=== PATIENT | male | born 1940 | race Caucasian/White ===

== ENCOUNTER → 2016-11-09 | Outpatient (CLI) | payer MEDICARE ==
[2016-11-09 12:58] LABS: CH 28.8; CHCM 33.4; HCT 39.9 % (39.0-53.0); HDW 2.68; HGB 13.5 gm/dL (13.0-17.5); MCH 29.3 pg (25.0-35.0); MCHC 33.8 g/dL (31.0-37.0); MCV 86.6 fL (80.0-100.0); Mean Platelet Volume 7.1; RBC 4.61 m/uL (4.30-5.90); RDW 13.9 % (11.5-15.5)
[2016-11-09 13:12] LABS: ALT 32 U/L (21-72); AST 20 U/L (17-59); Alkaline Phosphatase 156 U/L (38-126); Anion Gap 11 mmol/L; Blood Urea Nitrogen 13 mg/dL (9-20); Calcium 9.9 mg/dL (8.4-10.2); Carbon Dioxide 25 mmol/L (22-30); Chloride 105 mmol/L (98-107); Glucose 97 mg/dL (74-99); Non-African American GFR(MDRD) >60 (>60 ml/min/1.73 sqM); Potassium 4.2 mmol/L (3.5-5.1); Sodium 141 mmol/L (137-145); Total Bilirubin 0.5 mg/dL (0.2-1.3); Total Protein 7.9 g/dL (6.3-8.2)
[2016-11-09 13:25] LABS: Appearance,Urine Clear (Clear); Bilirubin,Urine Negative (Negative); Glucose,Urine (UA) Negative (Negative); Ketones,Urine Negative (Negative); Leukocyte Esterase,Urine Negative (Negative); Nitrite,Urine Negative (Negative); PH, Urine 5.5 (5.0-8.0); Protein,Urine Negative (Negative); Specific Gravity,Urine 1.004 (1.001-1.035); UA Billing (MACRO vs. MICRO) CHEM; Urobilinogen,Urine <2.0 mg/dL (<2.0)
[2016-11-09 13:28] LABS: Partial Thromboplastin Time 23.3 sec (22.0-30.0); Prothrombin Time 10.4 sec (9.0-12.0)
== END | disposition home or self-care (01) ==
LOC: LABPAT 12:32
PROVIDERS: ATTEND Orthopaedic Surgery
DX: Z01.810 Encounter for preprocedural cardiovascular examination (principal); Z79.01 Long term (current) use of anticoagulants; Z01.812 Encounter for preprocedural laboratory examination
CPT/HCPCS: 36415; 80053; 81003; 85027; 85610; 85730; 87070

== ENCOUNTER → 2016-11-19 | Outpatient (CLI) | payer MEDICARE ==
--- NOTE | 2016-11-19 14:21 | US ---
EXAMINATION TYPE: US bladder DATE OF EXAM: 11/19/2016 COMPARISON: NONE CLINICAL HISTORY: R33.9 Urinary retention,N13.9Obstructive uropathy both per order. Urge to urinate a fter voiding for over 1 year EXAM MEASUREMENTS: Post Void Residual Volume: 16.3 mL Color Doppler performed to assess ureteral jets. Bilateral Jets seen: yes Normal Post Void Residual (less than 50ml): yes Urinary bladder is satisfactorily distended without abnormal intraluminal mass or wall thickening. Bi lateral distal ureter jets are seen. After voiding small amount of residual urine is present. IMPRESSION: Exam is within normal limits.
== END | disposition home or self-care (01) ==
LOC: RADUSWWP 13:46
PROVIDERS: ATTEND Family Medicine
DX: R33.9 Retention of urine, unspecified (principal)
CPT/HCPCS: 76857

== ENCOUNTER 2016-12-04 05:24 | Inpatient (IN) | payer MEDICARE, BC ==
[2016-11-28 12:59] VITALS: BMI 26.2
[~2016-12-04 05:24] MED LIST: ACETAMINOPHEN TAB 500 MG TAB PO ONE; DEXAMETHASONE SOD PHOSPHATE 10 MG/ML 1 ML VIAL IV ONE; HYDROmorphone 1 MG/ML 1 ML SYRINGE IVP PRN; MELOXICAM 7.5 MG TAB PO ONE; MIDAZOLAM 2 MG/2 ML VIAL IV PRN; TRANEXAMIC ACID 1,000 MG in SODIUM CHLORIDE 0.9% 100 ML IVPB ONE; ceFAZolin 2 GM in SODIUM CHLORIDE 0.9% 100 ML IVPB ONE
[2016-12-04] MEDS ORDERED: LIDOCAINE 1% 20 ML VIAL (10MG/ML) FOR IV START INTRADERMA ONE (06:20)
[2016-12-04] MEDS: LACTATED RINGERS 1,000 ML IV SCH (06:20)
[2016-12-04] MEDS: ONDANSETRON 4 MG/2 ML VIAL IVP ONE ×2 (06:21→16:58)
[2016-12-04] MEDS ORDERED: MIDAZOLAM 2 MG/2 ML VIAL IV ONE (06:50)
[2016-12-04] MEDS ORDERED: HYDROcodone/APAP 5-325MG 1 EACH TAB PO PRN ×2 (06:56)
[2016-12-04] MEDS ORDERED: NALOXONE 0.4 MG/ML 1 ML VIAL IV PRN (06:56)
[2016-12-04] MEDS ORDERED: NA PHOS,M-B/NA PHOS,DI-BA 133 ML ENEMA RECTAL PRN (06:56)
[2016-12-04] MEDS ORDERED: HYDROmorphone 1 MG/ML 1 ML SYRINGE IVP PRN ×3 (06:56)
[2016-12-04] MEDS ORDERED: DIAZEPAM 5 MG TAB PO PRN ×2 (06:56)
[2016-12-04] MEDS ORDERED: BISACODYL 10 MG SUPP RECTAL PRN (06:56)
[2016-12-04] MEDS ORDERED: hydrOXYzine PAMOATE 25 MG CAP PO PRN (06:56)
[2016-12-04] MEDS ORDERED: MAGNESIUM HYDROXIDE 2,400 MG/10 ML CUP PO PRN (06:56)
[2016-12-04] MEDS ORDERED: ONDANSETRON 4 MG/2 ML VIAL IVP PRN (06:56)
[2016-12-04] MEDS ORDERED: PROPOFOL 10 MG/ML 20 ML VIAL IV ONE (07:06)
[2016-12-04] MEDS ORDERED: ceFAZolin 3,000 MG in SODIUM CHLORIDE 0.9% IRRIGATIO 3,000 ML IRRIGATION ONE (07:06)
[2016-12-04] MEDS ORDERED: MIDAZOLAM 2 MG/2 ML VIAL ONE (07:06)
[2016-12-04] MEDS ORDERED: fentaNYL (PF) 50 MCG/ML 2 ML AMP ONE (07:06)
[2016-12-04] MEDS ORDERED: PHENYLEPHRINE-0.9% NACL SYG 1 MG/10 ML SYRINGE ONE (07:06)
[2016-12-04] MEDS: ROPIVACAINE 246.25 MG, EPINEPHrine 0.5 MG, KETOROLAC 30 MG, cloNIDine HCL/PF 80 MCG, WA... MISCELLANE ONE ×10 (07:20→08:34)
[2016-12-04] MEDS ORDERED: LACTATED RINGERS 1,000 ML IV ONE (08:47)
--- NOTE | 2016-12-04 08:47 | P.OP ---
Date of Procedure: 12/04/16 Preoperative Diagnosis: Severe osteoarthritis left knee Postoperative Diagnosis: Severe osteoarthritis left knee Procedure(s) Performed: Left total knee arthroplasty Implants: Gaspar and Nephew Oxinium femoral component size 4, left Gaspar & Nephew Darling II left nonporous tibial baseplate size 5 Gaspar & Nephew size 13 mm Legion XLPE dished articular insert, size 5-6 Gaspar & Nephew Darling II resurfacing patellar component, 32 mm All components were cemented using Bernardo Palacos bone cement.. The articulation is ceramic on polyethylene. Anesthesia: spinal Surgeon: Km Blue Quality Lab Technician #1: Heidy Phillips Estimated Blood Loss (ml): 50 Pathology: other (Bone and cartilage) Condition: stable Disposition: PACU Indications for Procedure: After failure of conservative treatment we discussed the surgical and nonsurgical treatment options at length. Patient wishes to proceed with a total knee arthroplasty. Complications specific to this procedure were discussed at length, including but not limited to infection, bleeding, stiffness , and nerve injury. Patient is aware of all these complications and informed consent was obtained Operative Findings: The operative findings are consistent with severe osteoarthritis of the left knee Description of Procedure: Patient was seen in the preoperative area consent was reviewed and operative site was marked with a skin marker. An adductor canal pain catheter was placed by anesthesia in the preoperative area. Patient was then brought to the operating room and given preoperative antibiotics intravenously. A spinal anesthetic was administered by the anesthesia department. A tourniquet was placed on the upper thigh and the lower extremity was prepped and draped in usual sterile fashion. A gram of transexamic acid was given. A universal timeout was then performed which confirmed the patient's name, surgical site, ALLERGIES, and consent. The lower extremity was then exsanguinated and tourniquet was inflated to 250 mmHg. A standard and anterior midline approach to the knee was performed. The skin and subcutaneous tissue was dissected down to the patellar tendon. A medial parapatellar arthrotomy was then performed. The knee was then extended, the patellar was everted, and the knee was again flexed. Anterior horns of both menisci were excised, and a release was performed to the posterior medial aspect of the knee. On gross visual inspection, there was complete loss of articular cartilage in the medial and patellofemoral joint spaces. There was also significant cartilage damage in the lateral compartment. There were multiple periarticular osteophytes which were then removed with a Ronguer. The femoral canal was then opened with the appropriate drill, and the intramedullary femoral cutting guide was then placed and set for 4 of valgus. The distal femoral cutting block was then pinned in place, and the distal femur was then cut. The cutting block was then removed and the cut was checked for flatness. Next, the sizing guide was then placed and set for 3 external rotation based off of the epicondylar axis and Whitesides line. After the femur was sized, the appropriate 4-in-1 cutting block was then pinned in place. The anterior condyles were cut without notching. The posterior and chamfer cuts were performed while protecting the collateral ligaments. The cutting block was then removed, and the femoral canal was plugged with autologous bone. Attention was then directed to the tibia. The remaining ACL was removed with a Ronguer, and the tibia was then gently subluxed forward with a large bent knee retractor. Any remaining menisci was excised. The posterior lateral corner was cauterized in order to cauterize the lateral geniculate artery. The extra medullary tibial cutting guide was then placed, set for the appropriate rotation , slope, and depth of resection. The proximal tibia cutting guide was then pinned in place. Proximal tibia was then cut and sized. Next trials were then placed with the appropriate-sized insert. The knee was able to fully extend and flex to 130 and was stable throughout all range of motion. The knee was then extended, patella everted. Patella was then measured, and then using an osteotomy guide, the patella was cut at the appropriate level. The patella was then measured and drilled and the patella trial was then placed. The knee was then taken through range of motion with the patella trial and the patella tracked normally. The knee was then extended patella trial was then removed and the patella was everted. Knee was then flexed and lug holes were drilled through the femoral trial and the femoral trial was then removed. The tibial was then exposed, and the tibial broach guide was then pinned in place after it was set for the appropriate rotation to allow for the most coverage without overhang. The tibia was then reamed and broached. The cut surfaces of bone were then irrigated with pulsatile lavage. The posterior structures were injected with the ropivacaine solution. The knee was also irrigated with Irrisept solution. The components were then opened, the cement was mixed, and the components were then cemented in place. The cement was allowed to harden with the knee in full extension. While the cement was hardening, the remaining soft tissues were then injected with a ropivacaine solution, which consisted of 246.25 mg of ropivacaine, 0.5 mg of epinephrine, 30 mg of Toradol, 80 g of clonidine, and 48.45 mL of sterile water, for a total of 100 mL of fluid injected. After the cemented hardened. The tourniquet was released, and hemostasis was obtained. A second gram of transexamic acid was given. The knee was again irrigated. The knee was again taken through range of motion and found to be stable throughout all range of motion of 0-130 , and the patella tracked normally. The fascia was then closed with #2 strata fix suture. The subcutaneous tissue was closed with 3-0 Vicryl and 3-0 strata fix. Dermabond tape was used for the skin and placed with the knee in flexion. The patient was placed in a sterile dressing. Patient was then transferred to recovery room in stable condition. The land surveyor assistant CHANDLER Bell was required due the complexity surgery and the need for a skilled neurosurgical nurse. She assisted in positioning, draping, retraction, and closure of the wound.
[2016-12-04] MEDS ORDERED: ROPIVACAINE 1,100 MG, SODIUM CHLORIDE 0.9% 330 ML MISCELLANE PRN ×2 (09:20)
--- NOTE | 2016-12-04 09:32 | XR ---
EXAMINATION TYPE: XR knee limited LT DATE OF EXAM: 12/04/2016 CLINICAL HISTORY: Postoperative evaluation Two views of the left knee are submitted. Identified are changes of total knee arthroplasty with fem oral and tibial components appearing well seated. Postsurgical soft tissue changes are noted. Align ment is anatomic.
--- NOTE | 2016-12-04 10:20 | P.ONQ ---
Anesthesiology Proc Note - PNB - Peripheral Nerve Block Performed Left Adductor Canal Infusion Time Out Performed: Yes Procedure Start Time: 06:50 Procedure Stop Time: 06:59 Indication: Acute Post-Operative Pain, Requested by physician Sedation Type: Sedate with meaningful contact maintained Preparation: Sterile Dressing Position: Supine Catheter: Indwelling Needle Types: On-Q Needle Size: 150mm (6") Needle Gauge: 21 Technique: Ultrasound Injectate: 0.5% Ropivacaine (see comment for volume) (20cc) Blood Aspirated: No Pain Paresthesia on Injection Noted: No Resistance on Injection: Normal Events: Uneventful and Well Tolerated
[2016-12-04] MEDS: MELOXICAM 7.5 MG TAB PO SCH (17:35)
[2016-12-04] MEDS: ASPIRIN 325 MG TAB PO SCH ×2 (17:35→21:01)
[2016-12-04] MEDS ORDERED: ACETAMINOPHEN TAB 500 MG TAB PO PRN (20:34)
[2016-12-04] MEDS: SODIUM CHLORIDE 0.9% 1,000 ML IV SCH (20:56)
[2016-12-04] MEDS: ceFAZolin 2 GM in SODIUM CHLORIDE 0.9% 100 ML IVPB SCH ×2 (20:56→21:01)
[2016-12-04] MEDS ORDERED: FLUTICASONE 50MCG/SPRAY NASAL 16GM EA NOSTRIL SCH (21:00)
[2016-12-04] MEDS ORDERED: SENNOSIDES-DOCUSATE SODIUM 1 EACH TAB PO SCH (21:00)
[2016-12-04 21:05] VITALS: RESP 16
[2016-12-05 01:34] VITALS: BP 128/72; PULSE 74; TEMP 97.9
[2016-12-05] MEDS: SODIUM CHLORIDE 0.9% 1,000 ML IV SCH ×2 (04:16→07:28)
[2016-12-05] MEDS: MELOXICAM 7.5 MG TAB PO SCH (07:27)
[2016-12-05] MEDS: ASPIRIN 325 MG TAB PO SCH (07:29)
[2016-12-05] MEDS ORDERED: PANTOPRAZOLE 40 MG TABLET PO SCH (07:30)
[2016-12-05 07:48] LABS: Basophils % (A) 0 %; CH 27.9; CHCM 32.8; Eosinophils # (A) 0.1 k/uL (0-0.7); Eosinophils % (A) 0 %; HCT 34.1 % (39.0-53.0); HDW 2.67; HGB 11.1 gm/dL (13.0-17.5); Luc # (Auto) 0.17; Luc % (Auto) 1; Lymphocytes # (A) 1.6 k/uL (1.0-4.8); Lymphocytes % (A) 14 %; MCH 27.9 pg (25.0-35.0); MCHC 32.7 g/dL (31.0-37.0); MCV 85.3 fL (80.0-100.0); Mean Platelet Volume 7.2; Monocytes # (A) 0.9 k/uL (0-1.0); Monocytes % (A) 8 %; Neutrophils % (A) 77 %; RDW 13.6 % (11.5-15.5); WBC 11.7 k/uL (3.8-10.6); WBC (Perox) 12.31
[2016-12-05] MEDS ORDERED: amLODIPine 10 MG TAB PO SCH (09:00)
[2016-12-05] MEDS ORDERED: DOXAZOSIN 2 MG TAB PO SCH (09:00)
--- NOTE | 2016-12-05 09:37 | P.DS ---
Providers Date of admission: 12/04/16 05:47 Expected date of discharge: 12/05/16 Attending physician: Km Blue Consults: 12/04/16 06:56 Consult Physician Routine Consulting Provider: Aline Sood Consult Reason/Comments: medical management Do you want consulting provider notified?: Yes 12/04/16 16:07 Consult Physician Routine Consulting Provider: Monica Oneal Consult Reason/Comments: medical management Do you want consulting provider notified?: Already Contacted Primary care physician: Aline Sood - Discharge Diagnosis(es) (1) Primary osteoarthritis of left knee Current Visit: Yes Status: Acute (2) S/P total knee arthroplasty Current Visit: Yes Status: Acute Hospital Course: This is a 76-year-old male with known history of degenerative arthritis of the left knee. The patient presents for evaluation. After discussion and consideration patient elects to proceed with total knee arthroplasty. The patient is seen preoperatively by Dr. Blue and cleared for surgery. Patient is admitted to [facility] on 12/04/2016 for total knee arthroplasty. The procedures performed without complication or sequelae. The patient is doing well postoperatively. Labs and vital signs are stable on day of discharge. On day of discharge patient's knee incision is healing well. There is minimal erythema. There is no drainage noted at this time. There is minimal soft tissue swelling to the knee. Patient has full foot and ankle motion without difficulty or pain. Neurovascular status to the left lower extremity is intact. Patient is discharged home in good condition. Please see med rec for accurate list of home medications. Plan - Discharge Summary New Discharge Prescriptions: New Aspirin 325 mg PO BID #60 tab HYDROcodone/APAP 5-325MG [[place] 5-325] 1 - 2 tab PO Q4-6H PRN #90 tab PRN Reason: Pain Sennosides-Docusate Sodium [Senokot-S] 1 tab PO BID #60 tablet No Action Aspirin [Adult Low Dose Aspirin EC] 81 mg PO DAILY Acetaminophen [Tylenol Extra Strength] 500 mg PO Q4-6H PRN PRN Reason: Pain amLODIPine BESYLATE [Norvasc] 10 mg PO DAILY Omeprazole [PriLOSEC] 20 mg PO AC-BRKFST Doxazosin Mesylate 2 mg PO DAILY Triamcinolone Acetonide [Nasacort] 1 spray EA NOSTRIL HS Discharge Medication List Acetaminophen [Tylenol Extra Strength] 500 mg PO Q4-6H PRN 11/28/16 [History] Aspirin [Adult Low Dose Aspirin EC] 81 mg PO DAILY 11/28/16 [History] Doxazosin Mesylate 2 mg PO DAILY 11/28/16 [History] Omeprazole [PriLOSEC] 20 mg PO AC-BRKFST 11/28/16 [History] Triamcinolone Acetonide [Nasacort] 1 spray EA NOSTRIL HS 11/28/16 [History] amLODIPine BESYLATE [Norvasc] 10 mg PO DAILY 11/28/16 [History] Aspirin 325 mg PO BID #60 tab 12/05/16 [Rx] HYDROcodone/APAP 5-325MG [[place] 5-325] 1 - 2 tab PO Q4-6H PRN #90 tab 12/05/16 [ Rx] Sennosides-Docusate Sodium [Senokot-S] 1 tab PO BID #60 tablet 12/05/16 [Rx] Follow up Appointment(s)/Referral(s): Km Blue DO [Doctor of Osteopathic Medicine] - 2 Weeks Ambulatory/Diagnostic Orders: Continuous Passive Motion (CPM) Machine [DME.AMB1] Time Frame: 2 Weeks, Location : Determined By Patient Ambulatory Physical Therapy Order [THER.AMB] Location: Determined By Patient Patient Instructions/Handouts: Knee Replacement (DC) Discharge Disposition: HOME WITH HOME HEALTH SERVICES
--- NOTE | 2016-12-05 10:23 | CONS ---
DATE OF SERVICE: 12/04/2016 REASON FOR CONSULTATION: Advice regarding GERD, hypertension, requested by orthopedic surgery. HISTORY OF PRESENT ILLNESS: This 76-year-old gentleman with a past medical history of GERD, hypertension, DJD being followed by Dr. Sood in the outpatient setting underwent left total knee joint arthroplasty by Dr. Blue for severe DJD. There is no history of any fever, rigors. No history of headache, loss of conscious or seizures at this time. PAST MEDICAL HISTORY: History of GERD, hypertension, DJD, appendectomy, hernia surgery. Medications prior to admission include home medications are: 1. Norvasc 10 mg daily. 2. Nasacort 1 spray daily. 3. Prilosec 20 mg daily. 4. Doxazosin 2 mg p.o. daily. 5. Ecotrin 81 mg daily. 6. Tylenol Extra Strength 500 mg q.4 to 6 p.r.n. Allergies are none. FAMILY HISTORY: History of cancer in the family. SOCIAL HISTORY: No history of smoking. No history of alcohol intake. REVIEW OF SYSTEMS: ENT: No diminished hearing or diminished vision. CARDIOVASCULAR SYSTEM: No angina. RESPIRATORY SYSTEM: No cough. GI: No nausea. : No dysuria. NERVOUS SYSTEM: No numbness or weakness. ALLERGIES/IMMUNOLOGY: No asthma. MUSCULOSKELETAL: As mentioned earlier. HEMATOLOGY/ONCOLOGY: No history of anemia. ENDOCRINE: No history of diabetes, hypothyroidism. CONSTITUTIONAL: As mentioned earlier. DERMATOLOGY: Negative. RHEUMATOLOGY: Negative. PSYCHIATRY: As mentioned earlier. PHYSICAL EXAMINATION: The patient is alert and oriented x3. Pulse is 90, blood pressure is 142/79, respirations 16, temperature 98 degrees, pulse ox 93% on room air. HEENT: Conjunctivae normal. NECK: No jugular venous distention. CARDIAC: S1 and S2 muffled. RESPIRATORY: Breath sounds diminished at the bases. No rhonchi. No crackles. ABDOMEN: Soft, nontender. LEGS: Status post left knee arthroplasty. NERVOUS SYSTEM: No focal deficits. SKIN: No ulcers, rashes or bleeding. Labs are basic CBC, CMP within normal. ASSESSMENT: 1. Status post left total knee arthroplasty. 2. Hypertension. 3. Gastroesophageal reflux disease. 4. Degenerative joint disease. 5. History of depression. RECOMMENDATION AND DISCUSSION: Recommend to continue current medications. Continue symptomatic treatment. In this 76-year-old gentleman, I would recommend to resume the home medications, DVT prophylaxis, incentive spirometry. Otherwise, aspirin may be initiated once okay with orthopedic surgery. Recommend a close followup with primary physician in the outpatient setting. Thank you Dr. Blue for letting us participate in the care of this patient. LAMAR
--- NOTE | 2016-12-05 12:18 | P.PN ---
Progress Note - Text . Postoperative day # 1 status post left total knee arthroplasty, under spinal anesthesia, and adductor canal catheter placed for postoperative analgesia, currently at ropivacaine 0.2% 8 mL per hour and continuous infusion , catheter site local. There is no erythema, and there is no tenderness, visual analogue scale is 3/10, patient using oral pain medication for breakthrough pain. Assessment and plan= Acute postoperative pain, adductor canal catheter for pain control, pain is well controlled we'll continue the same management.
[2016-12-05 12:46] LABS: Appearance,Urine Clear (Clear); Bilirubin,Urine Negative (Negative); Glucose,Urine (UA) Negative (Negative); Ketones,Urine Negative (Negative); Leukocyte Esterase,Urine Negative (Negative); Nitrite,Urine Negative (Negative); Protein,Urine Negative (Negative); Specific Gravity,Urine 1.004 (1.001-1.035); UA Billing (MACRO vs. MICRO) CHEM; Urobilinogen,Urine <2.0 mg/dL (<2.0)
[2016-12-05] MEDS: LACTATED RINGERS 1,000 ML IV SCH (15:07)
--- NOTE | 2016-12-05 18:29 | PN ---
DATE OF SERVICE: 12/05/16 This 76-year-old gentleman who was admitted after left total knee arthroplasty is improving significantly. No chest pain. No palpitations. No fever. On exam, the patient is alert and oriented times three. Pulse 74. Blood pressure 120/72. Respiratory rate 16. Temperature 97.9 degrees. Pulse ox 97 % on room air. HEENT: Conjunctivae normal. Oral mucosa moist. Neck: No JVD. CARDIOVASCULAR: S1, S2 muffled. Respiratory: Breath sounds are equal. No rhonchi. No crackles. Abdomen soft, nontender. No mass palpable. LEGS: Status post knee arthroplasty. PICKER FEEDER: No focal deficits. LABS: WBC 11.1, hemoglobin 11.1. ASSESSMENT: 1. Status post left total knee joint arthroplasty. 2. Hypertension. 3. Gastroesophageal reflux disease. 4. Degenerative joint disease. RECOMMENDATIONS AND DISCUSSION: Recommend to continue the current medications, continue symptomatic treatment, otherwise I recommend UA with micro. Otherwise , continue to monitor. Further recommendations to follow with surgery. If the patient is discharged, I recommend to continue the rest of the home medications and follow with primary care physician in the outpatient. Further recommendations to follow. MTDD
== END 2016-12-05 14:51 | disposition home health service (06) | DRG 470 ==
LOC: 2ORMAIN 05:47 → 3SUR 09:00
PROVIDERS: ADMIT Orthopaedic Surgery; ATTEND Orthopaedic Surgery
PROC: 0SRD0J9 Replacement of Left Knee Joint with Synthetic Substitute, Cemented, Open Approach (ICD-10-PCS; principal; 2016-12-04 07:00)
DX: M17.0 Bilateral primary osteoarthritis of knee (principal); I10 Essential (primary) hypertension; Z79.899 Other long term (current) drug therapy; Z79.82 Long term (current) use of aspirin; Z87.891 Personal history of nicotine dependence; K21.9 Gastro-esophageal reflux disease without esophagitis; Z80.9 Family history of malignant neoplasm, unspecified; G89.18 Other acute postprocedural pain
CPT/HCPCS: 81003; 85025; 88300

== ENCOUNTER → 2017-09-30 | Outpatient (CLI) | payer MEDICARE, BC | END | disposition home or self-care (01) | LOC: LABPAT 10:58 | PROVIDERS: ATTEND Orthopaedic Surgery | DX: Z01.812 Encounter for preprocedural laboratory examination (principal) | CPT/HCPCS: 87070 ==

== ENCOUNTER 2017-10-15 07:00 | Inpatient (IN) | payer MEDICARE, BC ==
[2017-10-07 16:04] VITALS: BMI 26.4
[~2017-10-15 07:00] MED LIST changes: -ACETAMINOPHEN TAB 500 MG TAB PO ONE; -DEXAMETHASONE SOD PHOSPHATE 10 MG/ML 1 ML VIAL IV ONE; -HYDROmorphone 1 MG/ML 1 ML SYRINGE IVP PRN; +LACTATED RINGERS 1,000 ML IV SCH; -MELOXICAM 7.5 MG TAB PO ONE; -MIDAZOLAM 2 MG/2 ML VIAL IV PRN; +ROPIVACAINE 246.25 MG, EPINEPHrine 0.5 MG, KETOROLAC 30 MG, cloNIDine HCL/PF 80 MCG, WA... MISCELLANE ONE; -TRANEXAMIC ACID 1,000 MG in SODIUM CHLORIDE 0.9% 100 ML IVPB ONE; +TRANEXAMIC ACID 1,000 MG in SODIUM CHLORIDE 0.9% 50 ML IVPB ONE; -ceFAZolin 2 GM in SODIUM CHLORIDE 0.9% 100 ML IVPB ONE; +ceFAZolin IN SWFI 2 GM/20 ML SYRINGE IVP ONE; +fentaNYL (PF) 50 MCG/ML 2 ML AMP IV PRN
[2017-10-15] MEDS ORDERED: LIDOCAINE 1% 20 ML VIAL (10MG/ML) FOR IV START INTRADERMA ONE (12:09)
[2017-10-15] MEDS: ACETAMINOPHEN TAB 500 MG TAB PO ONE ×2 (12:13→16:40)
[2017-10-15] MEDS: MELOXICAM 7.5 MG TAB PO ONE ×2 (12:14→16:41)
[2017-10-15] MEDS: DEXAMETHASONE SOD PHOSPHATE 10 MG/ML 1 ML VIAL IV ONE ×2 (12:17→16:41)
[2017-10-15] MEDS: ONDANSETRON 4 MG/2 ML VIAL IVP ONE ×2 (12:17→16:41)
[2017-10-15] MEDS: MIDAZOLAM 2 MG/2 ML VIAL IV PRN ×2 (12:26→12:50)
[2017-10-15] MEDS ORDERED: LIDOCAINE 1% INJ 10MG/ML (20 ML MDV) ONE (12:58)
[2017-10-15] MEDS ORDERED: PROPOFOL 10 MG/ML 20 ML VIAL IV ONE (12:58)
[2017-10-15] MEDS ORDERED: diphenhydrAMINE 50 MG/ML 1 ML VIAL ONE (12:58)
[2017-10-15] MEDS ORDERED: fentaNYL (PF) 50 MCG/ML 2 ML AMP ONE (12:58)
[2017-10-15] MEDS: ceFAZolin IN SWFI 2 GM/20 ML SYRINGE IVP SCH ×2 (13:10→23:05)
[2017-10-15] MEDS ORDERED: MAGNESIUM HYDROXIDE 2,400 MG/10 ML CUP PO PRN (13:24)
[2017-10-15] MEDS ORDERED: HYDROcodone/APAP 5-325MG 1 EACH TAB PO PRN ×2 (13:24)
[2017-10-15] MEDS ORDERED: NALOXONE 0.4 MG/ML 1 ML VIAL IV PRN (13:24)
[2017-10-15] MEDS ORDERED: ONDANSETRON 4 MG/2 ML VIAL IVP PRN (13:24)
[2017-10-15] MEDS ORDERED: DIAZEPAM 5 MG TAB PO PRN ×2 (13:24)
[2017-10-15] MEDS ORDERED: BISACODYL 10 MG SUPP RECTAL PRN (13:24)
[2017-10-15] MEDS ORDERED: NA PHOS,M-B/NA PHOS,DI-BA 133 ML ENEMA RECTAL PRN (13:24)
[2017-10-15] MEDS ORDERED: HYDROmorphone 0.5 MG/0.5 ML SYRINGE IVP PRN ×4 (13:24)
[2017-10-15] MEDS ORDERED: hydrOXYzine PAMOATE 25 MG CAP PO PRN (13:24)
[2017-10-15] MEDS ORDERED: ceFAZolin 3,000 MG in SODIUM CHLORIDE 0.9% IRRIGATIO 3,000 ML IRRIGATION ONE (13:43)
[2017-10-15] MEDS ORDERED: LACTATED RINGERS 1,000 ML IV ONE ×2 (14:08)
--- NOTE | 2017-10-15 14:20 | P.OP ---
Date of Procedure: 10/15/17 Preoperative Diagnosis: Severe osteoarthritis right knee Postoperative Diagnosis: Severe osteoarthritis right knee Procedure(s) Performed: Right total knee arthroplasty Implants: Gaspar and Nephew Oxinium femoral component size 4, right Gaspar & Nephew Darling II right nonporous tibial baseplate size 5 Gaspar & Nephew size 11 mm Legion XLPE dished articular insert, size 5-6 Gaspar & Nephew Darling II resurfacing patellar component, 32 mm All components were cemented using Bernardo bone cement.. The articulation is Oxinium on polyethylene. Anesthesia: spinal Surgeon: Km Blue R&D Engineer #1: Heidy Phillips Estimated Blood Loss (ml): 20 Pathology: other (Bone and cartilage) Condition: stable Disposition: PACU Indications for Procedure: After failure of conservative treatment we discussed the surgical and nonsurgical treatment options at length. Patient wishes to proceed with a total knee arthroplasty. Complications specific to this procedure were discussed at length, including but not limited to infection, bleeding, stiffness , and nerve injury. Patient is aware of all these complications and informed consent was obtained Operative Findings: The operative findings are consistent with severe osteoarthritis of the right knee Description of Procedure: Patient was seen in the preoperative area consent was reviewed and operative site was marked with a skin marker. An adductor canal pain catheter was placed by anesthesia in the preoperative area. Patient was then brought to the operating room and given preoperative antibiotics intravenously. A spinal anesthetic was administered by the anesthesia department. A tourniquet was placed on the upper thigh and the lower extremity was prepped and draped in usual sterile fashion. A gram of transexamic acid was given. A universal timeout was then performed which confirmed the patient's name, surgical site, ALLERGIES, and consent. The lower extremity was then exsanguinated and tourniquet was inflated to 250 mmHg. A standard and anterior midline approach to the knee was performed. The skin and subcutaneous tissue was dissected down to the patellar tendon. A medial parapatellar arthrotomy was then performed. The knee was then extended, the patellar was everted, and the knee was again flexed. Anterior horns of both menisci were excised, and a release was performed to the posterior medial aspect of the knee. On gross visual inspection, there was complete loss of articular cartilage in the medial and patellofemoral joint spaces. There was also significant cartilage damage in the lateral compartment. There were multiple periarticular osteophytes which were then removed with a Ronguer. The femoral canal was then opened with the appropriate drill, and the intramedullary femoral cutting guide was then placed and set for 4 of valgus. The distal femoral cutting block was then pinned in place, and the distal femur was then cut. The cutting block was then removed and the cut was checked for flatness. Next, the sizing guide was then placed and set for 3 external rotation based off of the epicondylar axis and Whitesides line. After the femur was sized, the appropriate 4-in-1 cutting block was then pinned in place. The anterior condyles were cut without notching. The posterior and chamfer cuts were performed while protecting the collateral ligaments. The cutting block was then removed, and the femoral canal was plugged with autologous bone. Attention was then directed to the tibia. The remaining ACL was removed with a Ronguer, and the tibia was then gently subluxed forward with a large bent knee retractor. Any remaining menisci was excised. The posterior lateral corner was cauterized in order to cauterize the lateral geniculate artery. The extra medullary tibial cutting guide was then placed, set for the appropriate rotation , slope, and depth of resection. The proximal tibia cutting guide was then pinned in place. Proximal tibia was then cut and sized. Next trials were then placed with the appropriate-sized insert. The knee was able to fully extend and flex to 130 and was stable throughout all range of motion. The knee was then extended, patella everted. Patella was then measured, and then using an osteotomy guide, the patella was cut at the appropriate level. The patella was then measured and drilled and the patella trial was then placed. The knee was then taken through range of motion with the patella trial and the patella tracked normally. The knee was then extended patella trial was then removed and the patella was everted. Knee was then flexed and lug holes were drilled through the femoral trial and the femoral trial was then removed. The tibial was then exposed, and the tibial broach guide was then pinned in place after it was set for the appropriate rotation to allow for the most coverage without overhang. The tibia was then reamed and broached. The cut surfaces of bone were then irrigated with pulsatile lavage. The posterior structures were injected with the ropivacaine solution. The knee was also irrigated with Irrisept solution. The components were then opened, the cement was mixed, and the components were then cemented in place. The cement was allowed to harden with the knee in full extension. While the cement was hardening, the remaining soft tissues were then injected with a ropivacaine solution, which consisted of 246.25 mg of ropivacaine, 0.5 mg of epinephrine, 30 mg of Toradol, 80 g of clonidine, and 48.45 mL of sterile water, for a total of 100 mL of fluid injected. After the cemented hardened. The tourniquet was released, and hemostasis was obtained. A second gram of transexamic acid was given. The knee was again irrigated. The knee was again taken through range of motion and found to be stable throughout all range of motion of 0-130 , and the patella tracked normally. The fascia was then closed with #2 strata fix suture. The subcutaneous tissue was closed with 3-0 Vicryl and 3-0 strata fix. Dermabond glue was used for the skin and placed with the knee in flexion. The patient was placed in a sterile silver dressing. Patient was then transferred to recovery room in stable condition. The head start assistant teacher CHANDLER Bell was required due the complexity surgery and the need for a skilled neurosurgical physician assistant. She assisted in positioning, draping, retraction, and closure of the wound.
[2017-10-15] MEDS ORDERED: ROPIVACAINE 1,100 MG, SODIUM CHLORIDE 0.9% 330 ML MISCELLANE PRN ×2 (14:46)
--- NOTE | 2017-10-15 14:47 | P.ONQ ---
Anesthesiology Proc Note - PNB - Peripheral Nerve Block Performed Right Adductor Canal Indication: Acute Post-Operative Pain, Requested by physician (Dr Km Blue) Sedation Type: Sedate with meaningful contact maintained Preparation: Sterile Dressing Position: Supine Catheter: Indwelling Needle Types: Other (see comment) (Emily) Needle Size: 100mm (4") Needle Gauge: 21 Technique: Ultrasound Injectate: 0.5% Ropivacaine (see comment for volume) (20cc) Blood Aspirated: No Pain Paresthesia on Injection Noted: No Resistance on Injection: Normal Events: Uneventful and Well Tolerated
--- NOTE | 2017-10-15 15:15 | XR ---
EXAMINATION TYPE: XR knee limited RT DATE OF EXAM: 10/15/2017 CLINICAL HISTORY: Postoperative evaluation Two views of the right knee are submitted. Identified are changes of total knee arthroplasty with femoral and tibial components appearing well seated. Postsurgical soft tissue changes are noted. Alignment is anatomic.
[2017-10-15] MEDS: SODIUM CHLORIDE 0.9% 1,000 ML IV SCH (17:12)
--- NOTE | 2017-10-15 17:45 | P.CONS ---
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 He underwent surgery on 10/15 without any immediate postoperative complications. We are asked to consult for hypertensive management. Patient seen and examined at bedside. He tolerated the procedure well. Pain is currently controlled. He denies any nausea, shortness of breath, or lightheadedness. He has been having pain in his knee for several years and has been getting worse in nature. He was having difficulty ambulating secondary to the pain is requiring Aleve every day to control pain symptoms and he therefore elected to undergo total knee arthroplasty. He had a left total knee done in November 2016. He states that he is in his normal state of health prior to surgery. He denies any recent cough, cold, fever, flu, nausea, vomiting, diarrhea, or dysuria. His plan is to go home with home health.Last time he had his knee done is had home health services from [facility] in [place]. Review of Systems Positive: + Right knee pain Pertinent positives and negatives as discussed in HPI, a complete review of systems was performed and all other systems are negative. Past Medical History Past Medical History: Cancer, GERD/Reflux, Hypertension, Osteoarthritis (OA) Additional Past Medical History / Comment(s): HX SKIN CA NOSE, BASAL CELL. History of Any Multi-Drug Resistant Organisms: None Reported Past Surgical History: Appendectomy, Hernia Repair Additional Past Surgical History / Comment(s): EVA ING HERNIA. NASAL/SINUS SURGERY secondary to skin cancer. ORAL SURGERY Past Anesthesia/Blood Transfusion Reactions: No Reported Reaction Past Psychological History: Depression Additional Psychological History / Comment(s): PAST HX Smoking Status: Never smoker Past Alcohol Use History: None Reported Past Drug Use History: None Reported Additional History: Lives at home with his Roslyn, no assistive devices - Past Family History Brother(s) Family Medical History: Cancer Mother Family Medical History: Cancer Medications and Allergies Home Medications Medication Instructions Recorded Confirmed Type Acetaminophen [Tylenol Extra 500 mg PO Q4-6H PRN 11/28/16 10/15/17 History Strength] Doxazosin Mesylate 2 mg PO DAILY 11/28/16 10/15/17 History Omeprazole [PriLOSEC] 20 mg PO AC-BRKFST 11/28/16 10/15/17 History Triamcinolone Acetonide [Nasacort] 1 spray EA NOSTRIL HS 11/28/16 10/15/17 History amLODIPine BESYLATE [Norvasc] 10 mg PO DAILY 11/28/16 10/15/17 History Aspirin [Adult Low Dose Aspirin EC] 81 mg PO DAILY 10/07/17 10/15/17 History Allergies Allergy/AdvReac Type Severity Reaction Status Date / Time No Known Allergies Allergy Verified 10/15/17 16:13 Physical Exam Osteopathic Statement: *. No significant issues noted on an osteopathic structural exam other than those noted in the History and Physical/Consult. Vitals: Vital Signs Temp Pulse Resp BP Pulse Ox 10/15/17 15:47 79 16 116/64 93 L 10/15/17 15:30 78 16 128/67 93 L 10/15/17 15:15 80 16 128/66 92 L 10/15/17 15:00 82 16 146/70 95 10/15/17 14:51 97.0 F L 87 16 141/81 94 L 10/15/17 12:38 79 14 122/63 98 10/15/17 12:03 97.8 F 95 18 162/79 96 Intake and Output 10/15/17 10/15/17 10/15/17 06:59 14:59 22:59 Intake Total 1201 Output Total 20 Balance 1181 Intake: IV 1201 Output: Estimated Blood Loss 20 Other: Weight 61.235 kg General: non toxic, no distress, appears at stated age, normal weight Derm: no unusual rashes/lesions no unusual ecchymoses, warm, dry, right lower extremity with JOHANNA wrap Head: atraumatic, normocephalic, symmetric Eyes: EOMI, no lid lag, anicteric sclera, pupils equal round reactive to light ENT: Nose and ears atraumatic, no thrush, no pharyngeal erythema Neck: No thyromegaly, no cervical lymphadenopathy, trachea midline, supple Mouth: no lip lesion, mucus membranes moist Cardiovascular: S1S2 reg, no murmur, positive posterior tibial pulse bilateral, no edema, capillary refill less than 2 seconds Lungs: decreased bs b/l bases, no rhonchi, no rales , no accessory muscle use Abdominal: soft, nontender to palpation, no guarding, no appreciable organomegaly, normal bowel sounds Ext: no gross muscle atrophy, muscle strength 5 out of 5 in bilateral upper extremities, able to wiggle toes in bilateral lower extremities, no contractures , Neuro: CN II-XI grossly intact, light touch intact all 4 extremities, finger to nose within normal limits, Psych: Alert, oriented, appropriate affect Assessment and Plan Assessment: Arthritis status post right total knee arthroplasty -DVT prophylaxis with aspirin twice a day -Bowel regiment secondary to pain medications -Pain control -PT/OT -Orthopedic management Hypertension, controlled -Resume home Norvasc and Doxazosin GERD -Resume PPI Thank you for allowing us to participate in the care of this patient. Do not hesitate to contact us with questions. Someone can be reached from the [facility] hospitalist group at all hours of the day at [phone]. DVT prophylaxis: Aspirin Surrogate decision-maker: -Roslyn Discussed with: Patient, nursing Anticipated discharge: [address]: Home with home health A total of 45 minutes was spent on the care of this complex patient more than 50 % of the time was spent in counseling and care coordination.
[2017-10-15] MEDS: ASPIRIN 325 MG TAB PO SCH (20:05)
[2017-10-15] MEDS ORDERED: SENNOSIDES-DOCUSATE SODIUM 1 EACH TAB PO SCH (21:00)
[2017-10-15] MEDS ORDERED: FLUTICASONE 50MCG/SPRAY NASAL 16GM EA NOSTRIL SCH (21:00)
[2017-10-16 01:48] VITALS: BP 129/77; PULSE 80; RESP 16; TEMP 98.3
[2017-10-16] MEDS ORDERED: PANTOPRAZOLE 40 MG TABLET PO SCH (07:30)
[2017-10-16] MEDS ORDERED: amLODIPine 10 MG TAB PO SCH (09:00)
[2017-10-16] MEDS ORDERED: MELOXICAM 7.5 MG TAB PO SCH (09:00)
[2017-10-16] MEDS ORDERED: DOXAZOSIN 2 MG TAB PO SCH (09:00)
[2017-10-16] MEDS: SODIUM CHLORIDE 0.9% 1,000 ML IV SCH (10:55)
[2017-10-16] MEDS: ASPIRIN 325 MG TAB PO SCH (10:55)
--- NOTE | 2017-10-16 11:05 | P.PN ---
Progress Note - Text The patient is status post right adductor canal catheter placement. The catheter was placed for postoperative pain control, status post total right arthroplasty. Ropivacaine 0.2% is infusing at 8 mLs per hour. The patient has no complaints of right lower extremity numbness or weakness. Patient's VAS score is 0 -10. Assessment: Patient's adductor canal catheter is in place and working appropriately. Plan: continue infusion and adjust it as needed.
[2017-10-16 11:15] LABS: Basophils % (A) 0 %; Eosinophils % (A) 0 %; HCT 34.7 % (39.0-53.0); HGB 10.9 gm/dL (13.0-17.5); Lymphocytes # (A) 1.1 k/uL (1.0-4.8); Lymphocytes % (A) 9 %; MCH 25.6 pg (25.0-35.0); MCHC 31.4 g/dL (31.0-37.0); MCV 81.5 fL (80.0-100.0); Mean Platelet Volume 7.7; Monocytes # (A) 0.8 k/uL (0-1.0); Monocytes % (A) 7 %; Neutrophils # (A) 10.5 k/uL (1.3-7.7); Neutrophils % (A) 84 %; Platelet Count 418 k/uL (150-450); RBC 4.25 m/uL (4.30-5.90); RDW 15.1 % (11.5-15.5); WBC 12.5 k/uL (3.8-10.6)
--- NOTE | 2017-10-16 11:19 | P.DS ---
Providers Date of admission: 10/15/17 11:34 Expected date of discharge: 10/16/17 Attending physician: Km Blue Consults: 10/15/17 13:24 Consult Physician Routine Consulting Provider: Aline Sood Consult Reason/Comments: medical management Do you want consulting provider notified?: Yes 10/15/17 15:36 Consult Physician Routine Consulting Provider: Divine Hooks Consult Reason/Comments: medical management Do you want consulting provider notified?: Yes Primary care physician: Aline Sood - Discharge Diagnosis(es) (1) Primary osteoarthritis of right knee Current Visit: Yes Status: Acute (2) S/P total knee arthroplasty Current Visit: No Status: Acute Hospital Course: This is a 77-year-old male with known history of degenerative arthritis of the right knee. The patient presents for evaluation. After discussion and consideration patient elects to proceed with total knee arthroplasty. The patient is seen preoperatively by Dr. Blue and cleared for surgery. Patient is admitted to [facility] on 10/15/2017 for total knee arthroplasty. The procedures performed without complication or sequelae. The patient is doing well postoperatively. Labs and vital signs are stable on day of discharge. On day of discharge patient's knee incision is healing well. There is minimal erythema. There is no drainage noted at this time. There is minimal soft tissue swelling to the hip and thigh. Patient has full foot and ankle motion without difficulty or pain. Neurovascular status to the right lower extremity is intact. Patient is discharged home in good condition. Please see med rec for accurate list of home medications. Plan - Discharge Summary Discharge Rx Participant: No New Discharge Prescriptions: New Aspirin 325 mg PO BID #60 tab HYDROcodone/APAP 5-325MG [Flint 5-325] 1 - 2 tab PO Q4-6H PRN #90 tab PRN Reason: Pain Sennosides [Senokot] 1 tab PO BID #60 tablet No Action Acetaminophen [Tylenol Extra Strength] 500 mg PO Q4-6H PRN PRN Reason: Pain amLODIPine BESYLATE [Norvasc] 10 mg PO DAILY Omeprazole [PriLOSEC] 20 mg PO AC-BRKFST Doxazosin Mesylate 2 mg PO DAILY Triamcinolone Acetonide [Nasacort] 1 spray EA NOSTRIL HS Aspirin [Adult Low Dose Aspirin EC] 81 mg PO DAILY Discharge Medication List Acetaminophen [Tylenol Extra Strength] 500 mg PO Q4-6H PRN 11/28/16 [History] Doxazosin Mesylate 2 mg PO DAILY 11/28/16 [History] Omeprazole [PriLOSEC] 20 mg PO AC-BRKFST 11/28/16 [History] Triamcinolone Acetonide [Nasacort] 1 spray EA NOSTRIL HS 11/28/16 [History] amLODIPine BESYLATE [Norvasc] 10 mg PO DAILY 11/28/16 [History] Aspirin [Adult Low Dose Aspirin EC] 81 mg PO DAILY 10/07/17 [History] Aspirin 325 mg PO BID #60 tab 10/16/17 [Rx] HYDROcodone/APAP 5-325MG [Flint 5-325] 1 - 2 tab PO Q4-6H PRN #90 tab 10/16/17 [ Rx] Sennosides [Senokot] 1 tab PO BID #60 tablet 10/16/17 [Rx] Follow up Appointment(s)/Referral(s): [facility], [NON-STAFF] - Km Blue DO [Doctor of Osteopathic Medicine] - 2 Weeks Ambulatory/Diagnostic Orders: Continuous Passive Motion (CPM) Machine [DME.AMB1] Time Frame: 3 Weeks, Location : None Selected Activity/Diet/Wound Care/Special Instructions: Call [facility] once home to arrange CPM delivery - [phone] Weightbearing as tolerated with walker Leave dressing intact. Dressing may be removed by home care nurse in 10 days. CPM 5-6 hours daily as tolerated May shower with dressing on. Follow-up with [facility] in 2 weeks, please call with any questions or concerns [phone] Discharge Disposition: HOME WITH HOME HEALTH SERVICES
--- NOTE | 2017-10-16 12:15 | P.PN ---
Subjective Progress Note Date: 10/16/17 Principal diagnosis: Knee pain Patient is a 77-year-old male past medical history of hypertension, GERD, and basal cell skin cancer status post resection who presented to the hospital for right total knee arthroplasty. He underwent surgery on 10/15 without any immediate postoperative complications. We were asked to consult for hypertensive management. Patient seen and examined at bedside. His pain is well controlled. Denies any chest pain, shortness of breath, nausea, or vomiting. Feeling well and wants to go home. Objective - Vital Signs Vital signs: Vital Signs Temp 98.3 F 10/16/17 01:13 Pulse 80 10/16/17 01:13 Resp 16 10/16/17 01:13 BP 129/77 10/16/17 01:13 Pulse Ox 100 10/16/17 01:13 Intake & Output 10/15/17 10/16/17 10/16/17 18:59 06:59 18:59 Intake Total 1201 313 Output Total 20 800 Balance 1181 -487 Weight 61.235 kg Intake: IV 1201 Intake, IV Titration 195 Amount Sodium Chloride 0.9% 1, 195 000 ml @ 65 mls/hr IV . [id number] [facility] Rx#:[id number] Oral 118 Output: Urine 800 Estimated Blood Loss 20 - Exam General: non toxic, no distress, appears younger than stated age Derm: warm, dry Head: atraumatic, normocephalic, symmetric Eyes: EOMI, no lid lag, anicteric sclera Mouth: no lip lesion, mucus membranes moist Cardiovascular: S1S2 reg, no murmur, positive posterior tibial pulse bilateral, Lungs: CTA bilateral, no rhonchi, no rales , no accessory muscle use Abdominal: soft, nontender to palpation, no guarding, no appreciable organomegaly Ext: no gross muscle atrophy, no edema, no contractures, right knee with dressing in place Neuro: CN II-XI grossly intact, no focal neuro deficits Psych: Alert, oriented, appropriate affect - Labs CBC & Chem 7: 10/16/17 08:00 Labs: Abnormal Lab Results - Last 24 Hours (Table) 10/16/17 Range/Units 08:00 WBC 12.5 H (3.8-10.6) k/uL RBC 4.25 L (4.30-5.90) m/uL Hgb 10.9 L (13.0-17.5) gm/dL Hct 34.7 L (39.0-53.0) % Neutrophils # 10.5 H (1.3-7.7) k/uL Assessment and Plan Assessment: Arthritis status post right total knee arthroplasty -DVT prophylaxis with aspirin twice a day -Bowel regiment secondary to pain medications -Pain control -PT/OT -Orthopedic management Anticipated minimal acute blood loss anemia - should correct without intervention - will not start oral iron therapy at this time. - repeat CBC in 1 week with results to Dr. Sood Hypertension, controlled -Resume home Norvasc and Doxazosin GERD -Resume PPI Thank you for allowing us to participate in the care of this patient. Do not hesitate to contact us with questions. Someone can be reached from the [facility] hospitalist group at all hours of the day at [phone]. DVT prophylaxis: Aspirin Surrogate decision-maker: -Roslyn Discussed with: Patient, nursing Anticipated discharge: [address]: Home with home health A total of 45 minutes was spent on the care of this complex patient more than 50 % of the time was spent in counseling and care coordination.
== END 2017-10-16 14:34 | disposition home health service (06) | DRG 470 ==
LOC: 2ORMAIN 11:34 → 3SUR 15:17
PROVIDERS: ADMIT Orthopaedic Surgery; ATTEND Orthopaedic Surgery
PROC: 0SRC069 Replacement of Right Knee Joint with Oxidized Zirconium on Polyethylene Synthetic Substitute, Cemented, Open Approach (ICD-10-PCS; principal; 2017-10-15 13:45)
DX: M17.11 Unilateral primary osteoarthritis, right knee (principal); D62 Acute posthemorrhagic anemia; I10 Essential (primary) hypertension; K21.9 Gastro-esophageal reflux disease without esophagitis; Z79.82 Long term (current) use of aspirin; Z79.899 Other long term (current) drug therapy; Z85.828 Personal history of other malignant neoplasm of skin; Z79.51 Long term (current) use of inhaled steroids; Z96.652 Presence of left artificial knee joint; Z87.891 Personal history of nicotine dependence
CPT/HCPCS: 85025; 88300